=== PATIENT | female | born 1980 | race Caucasian/White ===

== ENCOUNTER 2016-08-12 22:45 | Inpatient (IN) | payer OTHER ==
[~2016-08-12] VITALS: Ht 165.1 cm; Wt 66.0 kg
[~2016-08-12 22:45] MED LIST: ASACOL HD800 MG PO; CIPRO500 MG PO; FINACEA 15% GEL50 GM TP; FLAGYL500 MG PO; HYDROCODON-ACE1 EAC7 PO; NEXIUM40 MG PO; PREDNISONE20 MG PO; ZOFRAN4 MG PO; [UNRECOGNIZED DRUG - OTHER] TP
[2016-08-12 23:16] LABS: ADD MIUA? YES; BILIRUBIN NEGATIVE; BLOOD NEGATIVE; COLOR YELLOW ((YELLOW)); GLUCOSE (STRIP) NEGATIVE; KETONES NEGATIVE; LEUKOCYTES NEGATIVE; NITRITE NEGATIVE; PROTEIN (STRIP) NEGATIVE; SPECIFIC GRAVITY 1.014 (1.000-1.030); UROBILINOGEN 0.2 MG/DL (0.2-1.0)
[2016-08-12 23:40] LABS: BACTERIA NONE SEEN /HPF; EPITHELIAL CELLS RARE /HPF; MUCUS TRACE /LPF; RED BLOOD CELLS 0-5 /HPF (0-5); UCUL ADDED? NO; WHITE BLOOD CELLS 0-5 /HPF (0-5)
[2016-08-13 05:47] VITALS: BP 134/74
[2016-08-13 07:35] VITALS: BP 114/68
[2016-08-13 12:13] VITALS: BP 117/75
[2016-08-13 12:14] LABS: ALKALINE PHOSPHATASE 37 IU/L (3-129); DIRECT BILIRUBIN 0.2 mg/dL (0.0-0.3)
[2016-08-13 12:16] LABS: TOTAL BILIRUBIN 0.5 MG/DL (0.0-1.0)
[2016-08-13 15:59] VITALS: BP 120/61
[2016-08-13 21:50] VITALS: BP 123/66
[2016-08-14] VITALS: BP 124/71
[2016-08-14 04:00] VITALS: BP 95/60
[2016-08-14 06:11] VITALS: BP 101/57
[2016-08-14 07:20] VITALS: BP 116/66
[2016-08-14] MEDS ORDERED: ZOFRAN ODT4 MG PO (10:04)
[2016-08-14] MEDS ORDERED: TRAMADOL HCL50 MG PO (10:04)
[2016-08-14 12:15] VITALS: BP 113/56
[2016-08-14] MEDS ORDERED: NORCO 5/3251 TABLET PO (15:21)
== END 2016-08-14 15:58 | disposition home or self-care (01) | DRG 419 ==
LOC: EME 22:45 → EXP 22:45 → EDOF 08-13 04:35 → 2EASTP 08-13 05:19 → 2EAST 08-13 19:00
PROVIDERS: Physician Assistant Surgical
PROC: 0FT44ZZ Resection of Gallbladder, Percutaneous Endoscopic Approach (ICD-10-PCS; principal; 2016-08-13)
DX: K80.12 Calculus of gallbladder with acute and chronic cholecystitis without obstruction (principal); K21.9 Gastro-esophageal reflux disease without esophagitis
CPT/HCPCS: 36415; 74177; 74181; 76705; 80053; 80076; 81003; 82150; 83690; 84443; 85025; 88304; 99281; 99284; C1769; J0131; J0330; J1100; J1170; J1885; J2175; J2250; J2270; J2405; J2710; J3010; J7030; J7050; S0028